=== PATIENT | male | born 1950 | race Caucasian/White ===

== ENCOUNTER 2020-04-18 05:09 | Observation (INO) ==
--- NOTE | 2020-04-06 15:15 | Anesthesiology Consultation ---
Date of Service April 06, 2020 Assessment & Plan (1) Encounter for pre-operative examination: Chart Review Chart Review: Acceptable Risk for Surgery (awaiting preop Covid testing results ) and Patient NOT seen in Pre Admission Testing Per nursing assessment 04/06/20, pt denies any recent travel. No known Covid positive contacts or Covid related symptoms. Pt did test Covid positive around 02/02/20. Scheduled for preop Covid testing 04/12/20= will await results. History Surgery Operation Date: 04/18/20 11:40 Proposed Procedures p Right Total Hip Arthroplasty - Pilo Mims MD Height/Weight Height: 5 ft 8 in Weight: 83.915 kg Allergies Allergy/AdvReac Type Severity Reaction Status Date / Time No Known Allergies Allergy Verified 04/06/20 07:33 Medications Home Medications Medication Instructions Recorded Confirmed Last Taken citalopram 40 mg tablet 40 mg PO QAM 01/06/20 04/06/20 Unknown gabapentin 100 mg capsule 100 mg PO HS 01/06/20 04/06/20 Unknown simvastatin 20 mg tablet 20 mg PO QAM 01/06/20 04/06/20 Unknown cholecalciferol (vitamin D3) 125 mcg PO QAM 01/25/20 04/06/20 Unknown [Vitamin D3] psyllium husk [Metamucil] 1 tsp PO QAM 01/25/20 04/06/20 Unknown zinc acetate 25 mg PO QAM 01/25/20 04/06/20 Unknown Past Medical History Medical History Anxiety History of COVID-27 Jan 2020 > retest Apr 3 Hyperlipidemia Hypertension Past Family History Family History Mother Family history of diabetes mellitus Past Surgical History Surgical History History of cholecystectomy History of colonoscopy History of vasectomy Nasal bone fx-closed REPAIR OF X 3 Social History Smoking Status: Never smoker Do You Dip or Chew Tobacco: No Hx Alcohol Use: Yes Alcohol type: beer alcohol intake frequency: a few times a week Hx Substance Use: No substance use type: does not use Testing Laboratory Results Laboratory Tests 0104/06/20 04/06/20 13:17 13:17 13:17 WBC 6.14 Hgb 15.2 Hct 46.5 Plt Count 253 PT 10.6 INR 1.0 Sodium 140 Potassium 4.7 Chloride 107 Carbon Dioxide 30 BUN 24 H Creatinine 1.02 Glucose 90 Electrocardiogram Date: 01/26/20 NSR at 60bpm. Low voltage QRS. Chest X-Ray Date: 01/26/20 Findings: + NAD
--- NOTE | 2020-04-12 12:32 | History and Physical Report ---
DATE OF ADMISSION: 04/18/2020 CHIEF COMPLAINT: Right hip pain and discomfort. HISTORY OF PRESENT ILLNESS: The patient is a 69-year-old gentleman from [place], who presents for surgical treatment of his right hip. He has got a 2-year history of gradually increasing right hip pain and discomfort and stiffness that has gotten worse over the past couple of years. He was initially treated at [facility] in [place], but comes here for his surgery. He had an injection, which really did not help much. He describes mostly lateral hip pain and groin pain. It radiates down to his knee, but no further. No numbness. He has difficulty putting his shoes and socks on. The last time he played golf, he had difficulty walking for the next 2 days. He would like to have his hip fixed. Of note, the patient was scheduled for surgery previously. This was back in February and his COVID test came up positive. He has now recovered from this. It has been over 30 days and he did have a negative COVID test on 03/06. He has got another one pending. PAST MEDICAL HISTORY: 1. Hypertension. 2. Elevated cholesterol. PAST SURGICAL HISTORY: Includes, 1. Mohs surgery. 2. Cholecystectomy. ALLERGIES: None. CURRENT MEDICATIONS: 1. Simvastatin. 2. Lisinopril. 3. Gabapentin. 4. Citalopram. SOCIAL HISTORY: Significant for a 69-year-old male. He is retired. Lives in [place]. FAMILY HISTORY: Significant for diabetes and heart disease. REVIEW OF SYSTEMS: Negative for diabetes, neurologic problem, vascular problems, or bleeding disorders. No chest pain or shortness of breath. No history of DVT or PE. No known bleeding problems. He did have COVID back in January, but now clear of this with a negative test at the end of February. Current test is pending. PHYSICAL EXAMINATION: GENERAL: Shows a pleasant, middle-aged male, he looks to be in good health. HEENT: Benign. NECK: Supple, no lymphadenopathy. LUNGS: Clear to auscultation. HEART: Has a regular rate and rhythm. ABDOMEN: Soft, nontender, nondistended. EXTREMITIES: Grossly neurovascularly intact except as follows: Examination of the right hip revealed the patient walks with a slightly antalgic gait. Leg lengths appear pretty equal. He has limited hip motion with pain with internal rotation. His pelvis rocks with this motion is well. There is no knee effusion. Negative straight leg raise. He is neurologically intact. X-RAYS: X-rays of the right hip were reviewed. It shows advanced right hip DJD. He has got complete loss of the superior joint space. He has got cystic changes of the femoral head and acetabulum. ASSESSMENT: A 69-year-old gentleman with advanced right hip degenerative joint disease, gradually progressed over the past 2 years. It is really affecting his quality of life and he would like to have this fixed. He was previously scheduled, but we had to cancel him due to his COVID issue, but this is now cleared up. PLAN: We are going to proceed with right hip replacement. The risks and benefits of right total hip replacement were explained to the patient including but not limited to DVT, PE, , infection, neurological injury, vascular injury, bleeding problem, pain, limited range of motion, stiffness, failure to relieve his symptoms, incomplete relief of symptoms, fracture, leg length inequality, etc. The patient understands and desires to proceed. Informed consent was obtained. He will need to hold his lisinopril on the morning of surgery. His current COVID test is pending. As far as discharge plans, he should be able to be discharged home using [facility] home health program.
[2020-04-18] MEDS ORDERED: LR 500ML BOLUS, THEN 15ML/HR IV SCH (06:00)
[2020-04-18] MEDS ORDERED: LR 60ML/HR IV SCH (06:00)
[2020-04-18] MEDS ORDERED: FAMOTIDINE 20 MG TAB PO SCH (06:00)
[2020-04-18] MEDS ORDERED: ACETAMINOPHEN 500 MG TAB PO SCH (06:00)
[2020-04-18] MEDS ORDERED: ceFAZolin 2000MG 2,000 MG/15 ML SYR IV SCH (06:00)
[2020-04-18] MEDS ORDERED: GABAPENTIN 300 MG CAP PO SCH (06:00)
[2020-04-18] MEDS ORDERED: BUPIVACAINE LIPOSOME/PF 266 MG, BUPIVACAINE/EPINEPHRINE 50 ML, SODIUM CHLORIDE 0.9% 30 ... INFIL SCH (06:00)
[2020-04-18] MEDS ORDERED: TRANEXAMIC ACID 1,000 MG **IV Intra-op IV SCH (06:00)
[2020-04-18] MEDS ORDERED: BUPIVACAINE 0.5 % 5 MG/1 ML PF 10ML VIAL ONE (06:34)
[2020-04-18] MEDS ORDERED: fentaNYL citrate 100 MCG/2 ML VIAL ONE (06:36)
[2020-04-18] MEDS ORDERED: MIDAZOLAM HCL 1 MG/ML 2ML VIAL ONE (06:36)
[2020-04-18] MEDS ORDERED: MoRPHine SULFATE PF 1 MG/ML 10 ML AMP/VIAL ONE (06:44)
[2020-04-18] MEDS ORDERED: BACITRACIN INJ 50,000 UNIT VIAL ONE (06:45)
[2020-04-18] MEDS ORDERED: BUPIVACAINE/EPINEPHRINE 0.5% MPF 1:200,000 30 ML VIAL ONE (06:45)
--- NOTE | 2020-04-18 06:46 | History & Physical Bridge Note ---
Date of Service April 18, 2020 History & Physical Bridge Note I have examined the patient, reviewed the History & Physical and in the interval since the performance of the History & Physical I have noted the following changes of clinical significance: no changes noted
[2020-04-18] MEDS ORDERED: ONDANSETRON INJ 2 MG/ML 2 ML VIAL IV PRN (07:15)
[2020-04-18] MEDS ORDERED: NALOXONE HCL 0.4 MG/1 ML VIAL/CARP IV PRN ×2 (07:15→09:43)
[2020-04-18] MEDS ORDERED: DC INTRASPINAL MORPHINE SCH (07:15)
[2020-04-18] MEDS ORDERED: NALOXONE HCL 0.08 MG in SYRINGE 1.8 ML IV PRN (07:15)
[2020-04-18] MEDS ORDERED: HYDROmorphone INJ 0.5 MG/0.5 ML SYR IV PRN (07:15)
[2020-04-18] MEDS ORDERED: LACTATED RINGER'S 500 ML IV PRN (07:15)
[2020-04-18] MEDS ORDERED: METOCLOPRAMIDE HCL 10 MG in SODIUM CHLORIDE 0.9% 50 ML IV PRN (07:15)
[2020-04-18] MEDS ORDERED: PROMETHAZINE HCL 12.5 MG in SODIUM CHLORIDE 0.9% 50 ML IV PRN (07:15)
[2020-04-18] MEDS ORDERED: MoRPHine SULFATE PF 1 MG/ML 10 ML AMP/VIAL INT SPINAL ONE (07:15)
[2020-04-18] MEDS ORDERED: diphenhydrAMINE 50 MG/ML VIAL IV PRN (07:15)
[2020-04-18] MEDS ORDERED: SODIUM CHLORIDE 0.9% 1000ML 1,000 ML IV SCH ×2 (07:15→09:43)
[2020-04-18] MEDS ORDERED: NO NARCOTICS OR SEDATIVES SCH (07:15)
[2020-04-18] MEDS ORDERED: KETOROLAC TROMETHAMINE 15 MG/ML VIAL IV PRN (07:15)
[2020-04-18] MEDS ORDERED: ePHEDrine sulfate 50 MG/ML AMP IV PRN (07:15)
[2020-04-18] MEDS ORDERED: NALOXONE HCL 1 MG in SODIUM CHLORIDE 0.9% 1000ML 1,000 ML IV PRN (07:15)
[2020-04-18] MEDS ORDERED: MEPERIDINE HCL 25 MG/ML CARP/VIAL IV PRN (07:15)
[2020-04-18] MEDS ORDERED: MoRPHine SULFATE 2 MG/ML CARP IV PRN (07:15)
[2020-04-18] MEDS ORDERED: PHENYLEPHRINE 100MCG/ML 5ML SYR ONE (07:34)
[2020-04-18] MEDS ORDERED: LIDOCAINE HCL 2% 2 ML VIAL/AMP(20MG/ML) INFIL ONE (07:34)
[2020-04-18] MEDS ORDERED: ePHEDrine sulfate 50 MG/ML SYR ONE (07:34)
[2020-04-18] MEDS ORDERED: PROPOFOL IV EMULSION 10 MG/ML 20 ML VIAL IV ONE (07:34)
--- NOTE | 2020-04-18 08:31 | Operative Report ---
Post Operative Report Pre & Post Diagnosis Operation Date: 04/18/20 07:00 Pre-Op Diagnosis: Right Hip Advanced Degenerative Joint Disease Post-Op Diagnosis: Right Hip Advanced Degenerative Joint Disease I identified the patient and participated in the time-out.: Yes Procedure Operation Date: 04/18/20 07:00 Actual Procedures p Right Total Hip Arthroplasty--Uncemented(Right) - Pilo Mims MD Surgeon Pilo Mims MD Printer Slotter Feeder MARINA Wu Estimated Blood Loss 200 Findings Consistent with Post-Op Diagnosis Operative findings were advanced right hip DJD. Extensive grade 4 [id number] disease of the femoral head and acetabulum. He did not have a lot of osteophyte formation. He did have a moderate-sized joint effusion. Fluids 1800 cc. Specimens Right femoral head sent for pathology. Drains None. Anesthesia Type Spinal MAC Complications none Disposition Accompanied Patient To Recovery: Yes Disposition: Recovery Room Indications Patient is a 69-year-old fairly active gentleman who is had about a 2 to 3-year history of increasing right hip pain discomfort. He has been treated conservatively at the [facility] in [place] for the past 2 years. Is symptoms continue to progress despite conservative care. X-rays show advanced hip arthritis. He elected to a total hip arthroplasty. Description of Procedure Operative implants consist of: 1. Biomet G7 size 56 mm acetabular shell. 2. 6.5 cancellous acetabular screws 135 mm length 125 mm length. 3. [place] hole hop picker. 4. Highly cross-linked polyethylene liner with a 56 mm outer diameter and 36 mm inner diameter. 5. [place] size 10 KLA femoral stem. 6. +5/36 mm ceramic articular ball. The patient was taken to the operating identified and placed on the operating table supine position but all contact areas were properly padded. IV antibiotics tried by anesthesia team. A spinal anesthetic had been implemented holding area. Bravo catheter was placed in sterile fashion. The patient was then placed in the left lateral decubitus position. An axillary roll was placed. A St[place] hip positioner was used for positioning. The right hip and leg were then prepped and draped in usual sterile fashion. A posterior lateral approach to the right hip was then performed through a curvilinear incision centered over the greater trochanter. Sharp dissection was carried through subcutaneous tissue down to level of the IT band gluteal fascia the IT band gluteal fascia then incised longitudinally in line with skin incision. The underlying greater bursa was excised. The piriformis and external rotators were tagged and taken off the posterior aspect hip joint capsule. A posterior capsulotomy was then performed leaving a large flap for later repair. The hip was internally rotated and dislocated. Femoral neck osteotomy cut was made with a cut about 14 mm above the lesser trochanter. Femoral head was removed and sent for pathology. The femur was retracted anteriorly. Attention drawn the acetabulum. The acetabular labrum was excised. The pulmonary fat was excised. Sequential reaming the acetabular was then performed given the size 51 and progressing up to 55. I did reamed with a 56 reamer and then placed a 56 Biomet G7 acetabular shell in about 40 degrees lateral opening and 20 degrees of anteversion. It was fixed with two 6.5 cancellous acetabular screws. A trial liner was placed. Attention drawn the femur. The proximal femur was entered with a cookie-cutter followed by canal finder. I then broached begin the size 8 and progressing up to a 10. We got really good fit of 10 and I did not think I could get the 11 down due to his a narrow diaphyseal canal. We got good cancellous bone. The calcar reamer was used smooth and off the calcar. I then trialed the hip and the +5 articular ball provide full stability into full extension and external rotation and flexion to 9 degrees internal rotation over 50 degrees. Leg lengths appeared appropriate. I elect to place these implants. All trial implants were removed. An apex hole hop picker was placed but highly cross-linked polyethylene liner was placed. A [place] KLA size 10 Femoral stem was then impacted in position. +5/36 mm ceramic articular ball was placed. Hip was located once again found to be stable. Attention drawn toward closing. The wound was irrigated with copious also pulsatile lavage solution. I did inject locally with 60 cc of half percent Marcaine with epinephrine. Patient had received 1 g tranexamic acid preoperatively. The posterior capsule external rotators were then repaired through drill holes in the posterior trochanter with #2 Tycron suture. The IT band gluteal fascia were then closed with #1 PDS suture in running fashion for the subcutaneous tissues then closed with 2 layers of the deep layer #1 Vicryl suture and subcutaneous tissues with 2-0 Dexon suture in a buried interrupted fashion. Skin was closed skin zehra. Leg was then cleaned dried a sterile dressing both Xeroform, 4 x 4's, ABD pad, foam tape was applied. Patient then transferred to the recovery room in stable condition. Patient tolerated procedure well and there were no complications. Terry Wu, my physician accountant assistant, was present for the entire procedure. His assistance was essential and required for appropriate patient positioning, prepping and draping, surgical exposure, performing the technical details of the operation, placement the implants, closure of the wound, and placement of the sterile bandage. I attest to the content of the Intraoperative Record and any orders documented therein. Any exceptions are noted below.
--- NOTE | 2020-04-18 08:52 | XRay Report ---
AP PELVIS, CROSSTABLE LATERAL RIGHT HIP History: Right total hip arthroplasty. Degenerative arthritis. Postop. FINDINGS: The patient is status post a right total hip arthroplasty. The hardware is intact. No fract ure or dislocation. Skin zehra are in place. IMPRESSION: Right total hip arthroplasty. No evidence for hardware complication ACT 112: Negative or not required by law. Electronically signed by: Sriram Eisenberg M.D. 04/18/2020 8:50 AM
[2020-04-18] MEDS ORDERED: bisacodyL 10 MG SUPP PR PRN (09:43)
[2020-04-18] MEDS ORDERED: ALUMINUM/MAGNESIUM SUSP 30 ML UDC PO PRN (09:43)
[2020-04-18] MEDS ORDERED: MAGNESIUM HYDROXIDE SUSP 30 ML UDC PO PRN (09:43)
[2020-04-18] MEDS ORDERED: TAMSULOSIN HCL 0.4 MG CAP PO PRN (10:00)
--- NOTE | 2020-04-18 10:04 | Anesthesiology Progress Note ---
Date of Service April 18, 2020 Anesthesia Post Procedure Vital Signs Vital Signs: Temp Pulse Pulse Pulse Resp BP BP 04/18/20 10:01 04/18/20 09:45 36.3 C L 68 16 116/68 04/18/20 09:15 36.3 C L 66 16 123/68 04/18/20 08:55 71 13 118/63 04/18/20 08:45 36.3 C L 70 16 120/62 04/18/20 08:35 72 20 121/63 04/18/20 08:25 74 13 116/67 04/18/20 08:15 36.3 C L 81 16 117/58 L 04/18/20 05:46 36.8 C 68 16 146/95 H Pulse Ox 04/18/20 10:01 95 04/18/20 09:45 91 04/18/20 09:15 94 04/18/20 08:55 98 04/18/20 08:45 95 04/18/20 08:35 99 04/18/20 08:25 97 04/18/20 08:15 97 04/18/20 05:46 96 Transfer of Care Handoff Completed per policy Notes Mental Status: alert / awake / arousable and participated in evaluation Patient Amnestic to Procedure: Yes Nausea / Vomiting: adequately controlled Pain: adequately controlled Airway Patency, RR, SpO2: stable & adequate BP & HR: stable & adequate Hydration State: stable & adequate Neuraxial Anesthesia: was administered and sensory block is resolving Anesthetic Complications: no major complications apparent
[2020-04-18] MEDS: CITALOPRAM 40 MG TAB PO SCH (11:41)
[2020-04-18] MEDS: SIMVASTATIN 20 MG TAB PO SCH (11:41)
[2020-04-18] MEDS: DOCUSATE SODIUM 100 MG CAP PO SCH ×2 (11:43→20:45)
[2020-04-18] MEDS: ASPIRIN 81 MG ECTAB PO SCH ×2 (11:43→20:44)
[2020-04-18] MEDS: KETOROLAC TROMETHAMINE 15 MG/ML VIAL IV SCH ×3 (11:43→22:11)
[2020-04-18] MEDS: PSYLLIUM 58.6% POWDER PACKET PO SCH (11:43)
[2020-04-18] MEDS: MULTIVITAMIN TAB PO SCH (11:44)
[2020-04-18] MEDS ORDERED: TRANEXAMIC ACID / 0.7% NACL 1,000 MG/100 ML BAG IV SCH (14:00)
[2020-04-18] MEDS: ACETAMINOPHEN 500 MG TAB PO SCH ×2 (14:06→22:11)
[2020-04-18] MEDS: ceFAZolin 2000MG 2,000 MG/15 ML SYR IV SCH ×2 (16:16→22:15)
[2020-04-18] MEDS: Scopolamine CHECK PATCH PLACEMENT SCH (16:16)
[2020-04-18] MEDS: ASCORBIC ACID 500 MG TAB PO SCH (16:17)
[2020-04-18] MEDS: FERROUS GLUCONATE 324 MG TAB PO SCH (16:18)
[2020-04-18] MEDS ORDERED: COUGH DROP (SUGAR FREE) LOZ 24 LOZ/1 BOX BUCCAL PRN (19:45)
[2020-04-18] MEDS ORDERED: GABAPENTIN 100 MG CAP PO SCH (21:00)
[2020-04-18] MEDS ORDERED: SENNA 8.6 MG TAB PO SCH (21:00)
--- NOTE | 2020-04-18 21:26 | Progress Notes ---
DATE: 04/18/2020 SUBJECTIVE: A 69-year-old gentleman postop from a right hip replacement. He is doing well. He denies any significant pain. No chest pain or shortness of breath. Not feeling dizzy or lightheaded. OBJECTIVE: VITAL SIGNS: Temperature is 36.6. Vital signs stable. GENERAL: Physical examination shows a pleasant, middle-aged male. He is sitting up in his bed and looks quite comfortable. He is awake, alert, and oriented. LUNGS: Clear to auscultation. HEART: Has a regular rate and rhythm. ABDOMEN: Soft, nontender, nondistended. EXTREMITIES: Grossly neurovascularly intact except as follows: Examination of the right hip reveals his leg lengths to be equal. Hip is located. Dressing is clean, dry and intact. Thigh is soft and supple. He can dorsiflex and plantarflex his foot appropriately. X-RAYS: X-ray of the right hip from recovery room reviewed. It shows a right uncemented total hip arthroplasty. The components look to be in good position. No signs of problems. ASSESSMENT: A 69-year-old gentleman postop from a right hip replacement, doing well. His pain is well controlled. His hip is located. He is neurologically intact. PLAN: 1. DVT prophylaxis including thigh-high TEDs, SCDs, and aspirin twice a day. 2. PT/OT. Weight bear as tolerated. Right total hip protocol. 3. Pain control, doing well with current pain regimen. Really not having any significant pain yet. 4. IV antibiotics x24 hours. 5. Disposition: Plan to discharge to home with some home health once adequately recovered.
[2020-04-19] MEDS: Scopolamine CHECK PATCH PLACEMENT SCH ×2 (00:20→07:31)
[2020-04-19] MEDS ORDERED: ONDANSETRON INJ 2 MG/ML 2 ML VIAL IV PRN (01:16)
[2020-04-19] MEDS ORDERED: METOCLOPRAMIDE HCL INJ 5 MG/ML 2 ML VIAL IV PRN (01:16)
[2020-04-19] MEDS ORDERED: traMADol HCL 50 MG TABLET PO PRN (01:16)
[2020-04-19] MEDS ORDERED: HYDROmorphone INJ 0.5 MG/0.5 ML SYR IV PRN (01:16)
[2020-04-19] MEDS: KETOROLAC TROMETHAMINE 15 MG/ML VIAL IV SCH ×2 (04:30→09:00)
[2020-04-19 06:10] LABS: Basophils # (auto) 0.01 K/uL (0-0.2); Basophils % (auto) 0.1 %; Eosinophils % (auto) 2.7 %; Hematocrit (blood only) 36.2 % (42-52); Hemoglobin 12.1 g/dL (14.0-18.0); Immature Granulocytes # (auto) 0.01 K/uL (0.00-0.02); Immature Granulocytes % (auto) 0.1 %; Lymphocytes # (auto) 0.78 K/uL (1.2-3.4); Lymphocytes % (auto) 10.3 %; Mean Corpuscular Hgb Conc 33.4 g/dL (32-36); Mean Corpuscular Volume 92.8 fL (80-100); Mean Platelet Volume 9.3 fL (7.4-10.4); Monocytes # (auto) 0.61 K/uL (0.11-0.59); Monocytes % (auto) 8.1 %; Neutrophils # (auto) 5.93 K/uL (1.4-6.5); Neutrophils % (auto) 78.7 %; Platelet Count 184 K/uL (130-400); RDW Coefficient of Variation 12.8 % (11.5-14.5); RDW Standard Deviation 43.3 fL (36.4-46.3); White Blood Count 7.54 K/uL (4.8-10.8)
[2020-04-19] MEDS: ACETAMINOPHEN 500 MG TAB PO SCH (06:14)
[2020-04-19 06:50] LABS: BUN Creatinine Ratio 22.4 (10-20); Creatinine Clr Calc Pharmacy 71.1 ml/min; Est GFR (African American) 81.9; Est GFR (Non-African American) 70.6; Potassium 3.9 mmol/L (3.5-5.1)
[2020-04-19] MEDS: ASCORBIC ACID 500 MG TAB PO SCH (07:29)
[2020-04-19] MEDS: FERROUS GLUCONATE 324 MG TAB PO SCH (07:30)
[2020-04-19] MEDS ORDERED: dexAMETHasone 4 MG TAB PO SCH (08:00)
[2020-04-19] MEDS: PSYLLIUM 58.6% POWDER PACKET PO SCH (08:57)
[2020-04-19] MEDS: DOCUSATE SODIUM 100 MG CAP PO SCH (08:58)
[2020-04-19] MEDS: ASPIRIN 81 MG ECTAB PO SCH (08:58)
[2020-04-19] MEDS: MULTIVITAMIN TAB PO SCH (08:58)
[2020-04-19] MEDS: CITALOPRAM 40 MG TAB PO SCH (08:59)
[2020-04-19] MEDS: SIMVASTATIN 20 MG TAB PO SCH (08:59)
[2020-04-19] MEDS ORDERED: ZINC SULFATE 220 MG CAPSULE PO SCH (09:00)
[2020-04-19] MEDS ORDERED: CHOLECALCIFEROL 1,000 UNITS 25 MCG TAB PO SCH (09:00)
--- NOTE | 2020-04-19 11:52 | Progress Notes ---
DATE: 04/19/2020 SUBJECTIVE: A 69-year-old gentleman postoperative day 1 from right hip replacement. He is doing pretty well. Had good night. The pain is controlled. No chest pain or shortness of breath. Not feeling dizzy or lightheaded. OBJECTIVE: VITAL SIGNS: Temperature is 36.7. Vital signs are stable. GENERAL: Shows a pleasant, middle-aged male. He is sitting up in bed, looks pretty comfortable this morning. EXTREMITIES: Examination of the right hip reveals leg lengths to be equal. His dressing is clean, dry and intact. His thigh is soft and supple. No significant drainage. He can dorsiflex and plantarflex his foot appropriately. He is neurologically intact. LABORATORY DATA: Hemoglobin 12.1. Hematocrit 36.2. Electrolytes are stable. ASSESSMENT: A 69-year-old gentleman postoperative day 1 from right hip replacement, doing pretty well. His pain is controlled. Hip is located. He is neurologically intact. PLAN: 1. DVT prophylaxis including thigh-high TEDs, SCDs, and aspirin twice a day. 2. PT/OT. Weight bear as tolerated. Right total hip protocol. 3. Pain control, doing well with current pain regimen. 4. Disposition: He is planning to be discharged to home with some home health once adequately recovered. We will see how he does in therapy today. If he does okay and the pain is controlled, we will likely discharge him later on today.
--- NOTE | 2020-04-22 09:14 | Discharge Summary ---
Date of Service April 22, 2020 Discharge Data Consultations 04/19/20 08:00 Consult Case Management - Discharge Planning Routine Procedures Performed Operation Date: 04/18/20 07:00 Actual Procedures p Right Total Hip Arthroplasty--Uncemented(Right) - Pilo Mims MD Hospital Course (1) Status post total hip replacement, right: This patient is a 69 year old male admitted on 04/18/20 and underwent total hip arthroplasty. He tolerated the procedure well and there were no complications. Transferred to the PACU post op and later to the orthopedic floor for further care. He was given ancef for antibiotic prophylaxis. He was also given KEVIN stockings, SCDs, and aspirin for DVT prophylaxis. Hemoglobin, hematocrit, and vital signs were monitored during his hospital stay and remained stable. Did not require any blood transfusions. There were no complications during his hospital stay. By post op day #1 the patient was tolerating a regular diet, pain was reasonably controlled with oral pain medicine, and he was participating in physical therapy. On post op day #1 the patient was discharged home and set up with home health care. He was given printed discharge instructions including prescriptions for extra strength tylenol, aspirin, and tramadol. Continue physical therapy, weight bearing as tolerated. Continue hip precautions. Continue KEVIN stockings. Follow up approximately 2 weeks post op or sooner if there are problems or concerns. Coding Level of Care Code None Diagnoses Status post total hip replacement, right Z96.641
== END 2020-04-19 13:15 | disposition home health service (06) ==
LOC: ASU 05:09 → 3E 05:09